=== PATIENT | female | born 1990 | race Caucasian/White ===

== ENCOUNTER 2016-08-26 06:17 | Day surgery (SDC) | payer OTHER ==
[~2016-08-26] VITALS: Ht 167.6 cm; Wt 61.0 kg
[~2016-08-26 06:17] MED LIST: ADDERALL15 MG PO; ADDERALL20 MG PO; DILAUDID4 MG PO; KEFLEX500 MG PO; PERCOCET 7.51 TABLET PO; PRENATAL TABLE1 EAC3 PO; XANAX0.25 MG PO
[2016-08-26 06:49] VITALS: BP 114/77
[2016-08-26 09:15] VITALS: BP 124/57
[2016-08-26 10:07] VITALS: BP 103/63
[2016-08-26 12:20] VITALS: BP 118/68
[2016-08-26 13:20] VITALS: BP 107/65
== END 2016-08-26 13:35 | disposition home or self-care (01) ==
LOC: SDC 06:17
PROC: 0UV Female Reproductive System, Restriction (ICD-10-PCS; principal; 2016-08-26)
DX: N88.3 Incompetence of cervix uteri (principal)
CPT/HCPCS: J1885

== ENCOUNTER 2016-12-02 17:15 | Outpatient (CLI) | payer OTHER ==
[~2016-12-02] VITALS: Ht 167.6 cm; Wt 68.0 kg
[2016-12-02 17:50] VITALS: BP 119/78
[2016-12-02 18:52] LABS: ADD MIUA? YES; BILIRUBIN NEGATIVE; BLOOD NEGATIVE; COLOR YELLOW ((YELLOW)); GLUCOSE (STRIP) NEGATIVE; KETONES NEGATIVE; LEUKOCYTES TRACE; NITRITE NEGATIVE; PROTEIN (STRIP) NEGATIVE; SPECIFIC GRAVITY 1.009 (1.000-1.030); UROBILINOGEN 0.2 MG/DL (0.2-1.0)
[2016-12-02 18:57] LABS: BACTERIA NONE SEEN /HPF; EPITHELIAL CELLS RARE /HPF; MUCUS NONE SEEN /LPF; RED BLOOD CELLS 0-5 /HPF (0-5); UCUL ADDED? NO; WHITE BLOOD CELLS 0-5 /HPF (0-5)
[2016-12-02 19:25] VITALS: BP 130/81
[2016-12-02 19:55] LABS: CANDIDA DNA PROBE NEGATIVE; GARDNERELLA DNA PROBE POSITIVE; INTERNAL CONTROL VALID? YES
[2016-12-02 20:03] VITALS: BP 129/71
[2016-12-02 20:36] VITALS: BP 118/71
[2016-12-02 21:28] VITALS: BP 114/75
[2016-12-03 12:13] LABS: CHLAMYDIA TRACHOMATIS NEGATIVE; NEISSERIA GONORRHOEAE NEGATIVE
== END 2016-12-02 23:05 | disposition home or self-care (01) ==
LOC: LDRP-OP 17:15 → 2WEST 17:17 → LDRP-OP 04-02 11:32
PROVIDERS: Nurse Practitioner
DX: O47.02 False labor before 37 completed weeks of gestation, second trimester (principal); Z3A.27 27 weeks gestation of pregnancy; O23.592 Infection of other part of genital tract in pregnancy, second trimester; N76.0 Acute vaginitis; B96.89 Other specified bacterial agents as the cause of diseases classified elsewhere; O32.9XX0 Maternal care for malpresentation of fetus, unspecified, not applicable or unspecified; O09.212 Supervision of pregnancy with history of pre-term labor, second trimester
CPT/HCPCS: 59025; 81003; 87480; 87491; 87510; 87591; 87660; G0378; J7120

== ENCOUNTER 2017-01-28 07:52 | Day surgery (SDC) | payer OTHER ==
[~2017-01-28] VITALS: Ht 167.6 cm; Wt 72.6 kg
[2017-01-28 08:19] LABS: HEMATOCRIT 41.2 % (36.0-46.0); MCH 32.2 PG (29.0-34.0); MCHC 34.2 G/DL (30.0-36.0); MCV 94.1 FL (83-99); MEAN PLAT.VOLUME 10.2 uM^3 (9.5-12.4); PLATELET COUNT 224 K/uL (156-360); RBC DIS.WIDTH-CV 12.4 % (11.8-14.6); RBC DIS.WIDTH-SD 42.7 % (39-53); RED BLOOD COUNT 4.38 M/uL (3.80-5.20)
[2017-01-28 08:38] VITALS: BP 124/81
[2017-01-28 12:50] VITALS: BP 123/82
[2017-01-28 14:57] VITALS: BP 131/85
== END 2017-01-28 17:15 | disposition home or self-care (01) ==
LOC: SDC 07:52 → 2SOUTH 12:39 → ENRESERV 12:42 → 2WEST 12:55
PROVIDERS: Psychiatry & Neurology Neurology
PROC: 0UN Female Reproductive System, Release (ICD-10-PCS; principal; 2017-01-28)
DX: O34.33 Maternal care for cervical incompetence, third trimester (principal); O09.213 Supervision of pregnancy with history of pre-term labor, third trimester; Z87.891 Personal history of nicotine dependence
CPT/HCPCS: 59025; 85027; 86900; 86901; G0378; J3010; J7120

== ENCOUNTER 2017-01-31 17:37 | Outpatient (CLI) | payer OTHER ==
[~2017-01-31] VITALS: Ht 167.6 cm; Wt 75.6 kg
[2017-01-31 18:16] LABS: HEMATOCRIT 40.4 % (36.0-46.0); MCH 31.9 PG (29.0-34.0); MCHC 33.9 G/DL (30.0-36.0); MCV 94.2 FL (83-99); MEAN PLAT.VOLUME 10.3 uM^3 (9.5-12.4); PLATELET COUNT 215 K/uL (156-360); RBC DIS.WIDTH-CV 12.3 % (11.8-14.6); RBC DIS.WIDTH-SD 42.5 % (39-53); RED BLOOD COUNT 4.29 M/uL (3.80-5.20); WHITE BLOOD COUNT 13.8 K/uL (4.1-10.2)
[2017-01-31 18:25] LABS: CHLORIDE 105 mEq/L (99-109); POTASSIUM 3.7 mEq/L (3.7-5.4); SODIUM 137 mEq/L (136-147)
[2017-01-31 18:27] LABS: GLUCOSE 113 mg/dL (70-99)
[2017-01-31 18:28] LABS: ANION GAP 10 MEQ/L (2-14)
[2017-01-31 18:28] LABS: ADD MIUA? YES; BILIRUBIN NEGATIVE; BLOOD NEGATIVE; COLOR STRAW ((YELLOW)); GLUCOSE (STRIP) NEGATIVE; KETONES NEGATIVE; LEUKOCYTES TRACE; NITRITE NEGATIVE; PROTEIN (STRIP) NEGATIVE; SPECIFIC GRAVITY 1.004 (1.000-1.030); UROBILINOGEN 0.2 MG/DL (0.2-1.0)
[2017-01-31 18:29] LABS: TOTAL BILIRUBIN 0.8 mg/dL (0.0-1.0)
[2017-01-31 18:30] LABS: ALKALINE PHOSPHATASE 114 IU/L (3-129)
[2017-01-31 18:31] LABS: BACTERIA RARE /HPF; CALCIUM OXALATE CRYSTALS 2+ /HPF; EPITHELIAL CELLS RARE /HPF; MUCUS NONE SEEN /LPF; RED BLOOD CELLS 0-5 /HPF (0-5); UCUL ADDED? NO; WHITE BLOOD CELLS 0-5 /HPF (0-5)
[2017-01-31 18:31] LABS: GFR ESTIMATE (CALCULATED) > 59 mL/min/
[2017-01-31 18:32] LABS: UREA NITROGEN (BUN) 4 mg/dL (9-23)
[2017-01-31 20:00] VITALS: BP 118/76
[2017-01-31 20:10] VITALS: BP 121/81
[2017-01-31 20:20] VITALS: BP 116/77
== END 2017-01-31 20:40 | disposition home or self-care (01) ==
LOC: LDRP-OP 17:37 → EME 17:37 → EDSTATUS 19:19 → 2WEST 19:21
PROVIDERS: Nurse Practitioner Family
PROC: 0UCC7ZZ Extirpation of Matter from Cervix, Via Natural or Artificial Opening (ICD-10-PCS; principal; 2017-01-31)
DX: O34.33 Maternal care for cervical incompetence, third trimester (principal); Z3A.35 35 weeks gestation of pregnancy
CPT/HCPCS: 59025; 80053; 81003; 85027; 99281; 99284; G0378

== ENCOUNTER 2017-03-02 13:32 | Outpatient (CLI) | payer OTHER ==
[2017-03-02 13:45] VITALS: BP 137/90
== END 2017-03-02 15:30 | disposition home or self-care (01) ==
LOC: LDRP-OP 13:32 → 2WEST 13:34 → LDRP-OP 04-02 23:29
DX: O47.1 False labor at or after 37 completed weeks of gestation (principal); Z3A.40 40 weeks gestation of pregnancy
CPT/HCPCS: 59025; G0378

== ENCOUNTER 2017-03-03 16:50 | Inpatient (IN) | payer OTHER ==
[2017-03-03] VITALS (14 sets, daily range): BP systolic 101–145; BP diastolic 63–94
[~2017-03-03] VITALS: Ht 162.6 cm; Wt 76.0 kg
[2017-03-03 18:19] LABS: EOSINOPHIL (%) 0.4 % (0-5); EOSINOPHIL COUNT 0.1 K/uL (0-0.3); IMMATURE GRANULOCYTE (%) 0.8 % (0.0-0.7); IMMATURE GRANULOCYTE COUNT 0.1 K/uL; LYMPHOCYTE COUNT 1.9 K/uL (1.0-2.8); MCH 33.3 PG (29.0-34.0); MCHC 35.6 G/DL (30.0-36.0); MCV 93.5 FL (83-99); MEAN PLAT.VOLUME 10.6 uM^3 (9.5-12.4); MONOCYTE COUNT 0.8 K/uL (0-0.8); NEUTROPHIL (%) 79.3 % (45-76); PLATELET COUNT 222 K/uL (156-360); RBC DIS.WIDTH-CV 12.1 % (11.8-14.6); RBC DIS.WIDTH-SD 41.8 % (39-53); RED BLOOD COUNT 4.17 M/uL (3.80-5.20); WHITE BLOOD COUNT 13.8 K/uL (4.1-10.2)
[2017-03-04] VITALS (7 sets, daily range): BP systolic 110–133; BP diastolic 66–84
[2017-03-04] MEDS ORDERED: IBUPROFEN800 MG PO (02:49)
[2017-03-04] MEDS ORDERED: ENDOCET 5-3251 EACH PO (02:49)
[2017-03-05 02:00] VITALS: BP 105/55
[2017-03-05 07:15] VITALS: BP 119/74
[2017-03-05 07:49] LABS: EOSINOPHIL (%) 0.9 % (0-5); EOSINOPHIL COUNT 0.1 K/uL (0-0.3); HEMATOCRIT 29.6 % (36.0-46.0); IMMATURE GRANULOCYTE (%) 0.7 % (0.0-0.7); IMMATURE GRANULOCYTE COUNT 0.1 K/uL; INSTRUMENT ABS NEUTROPHIL CT 11.1 K/uL; LYMPHOCYTE COUNT 1.8 K/uL (1.0-2.8); MCH 32.5 PG (29.0-34.0); MCHC 33.4 G/DL (30.0-36.0); MEAN PLAT.VOLUME 10.5 uM^3 (9.5-12.4); MONOCYTE (%) 6.1 % (3-12); MONOCYTE COUNT 0.9 K/uL (0-0.8); NEUTROPHIL (%) 79.5 % (45-76); NEUTROPHIL COUNT 11.1 K/uL (1.8-6.4); PLATELET COUNT 177 K/uL (156-360); RBC DIS.WIDTH-CV 12.4 % (11.8-14.6); RED BLOOD COUNT 3.05 M/uL (3.80-5.20)
[2017-03-05 10:54] VITALS: BP 115/59
[2017-03-05 15:21] VITALS: BP 119/78
[2017-03-05 19:00] VITALS: BP 152/75
[2017-03-05 22:15] VITALS: BP 135/89
[2017-03-06 03:00] VITALS: BP 131/74
[2017-03-06 08:01] VITALS: BP 133/85
[2017-03-06 11:30] VITALS: BP 130/78
== END 2017-03-06 13:44 | disposition home or self-care (01) | DRG 766 ==
LOC: LDRP-OP 16:50 → 2WEST 16:53 → LDRP-OP 04-02 15:50
PROVIDERS: Midwife; Obstetrics & Gynecology
DX: O33.9 Maternal care for disproportion, unspecified (principal); O62.1 Secondary uterine inertia; J45.30 Mild persistent asthma, uncomplicated; O99.52 Diseases of the respiratory system complicating childbirth; Z3A.40 40 weeks gestation of pregnancy; O76 Abnormality in fetal heart rate and rhythm complicating labor and delivery; Z37.0 Single live birth; O99.02 Anemia complicating childbirth; D50.9 Iron deficiency anemia, unspecified
CPT/HCPCS: 59025; 85025; 88307; G0378; J0690; J1885; J2175; J2270; J2274; J3010; J7120